=== PATIENT | female | born 1935 | race African-American/Black ===

== ENCOUNTER 2017-11-02 13:57 | Outpatient (CLI) | payer MEDICARE, OTHER | END 2017-11-02 13:58 | disposition home or self-care (01) | LOC: BICCT 13:57 | PROVIDERS: ATTEND Internal Medicine Geriatric Medicine | DX: R29.898 Other symptoms and signs involving the musculoskeletal system (principal) | CPT/HCPCS: 70450 ==

== ENCOUNTER 2018-03-09 18:12 | Inpatient (IN) | payer MEDICARE, OTHER ==
[2018-03-09 19:10] LABS: #Lymphocytes 0.9 thou/uL (1.20-3.40); #Monocytes 0.7 thou/uL (0.11-0.59); #Neutrophils 7.5 thou/uL (1.40-6.50); %Basophils 0.2 % (0.0-1.0); %Eosinophils 0.1 % (0.0-10.0); %Lymphocytes 9.6 % (21.0-51.0); %Monocytes 7.6 % (0.0-10.0); %Neutrophils 82.5 % (42.0-75.0); Hemoglobin 13.5 g/dL (12.0-16.0); Mean Corpuscular HGB CONC 33.7 g/dL (32.0-36.0); Mean Corpuscular Volume 86.1 fL (78.0-98.0); Mean Platelet Volume 7.4 fL (7.4-10.4); Platelet Count 340 thou/uL (130-400); RBC Distribution Width 14.3 % (11.5-14.5); Red Blood Cell (RBC) Count 4.67 mill/uL (4.20-5.40); White Blood Cell (WBC) Count 9.1 thou/uL (4.8-10.8)
[2018-03-09 19:30] LABS: ALT (SGPT) 17 U/L (8-55); AST (SGOT) 53 U/L (5-34); Albumin 4.4 g/dL (3.4-4.8); Alkaline Phosphatase 50 U/L (40-150); Anion Gap 18 mmol/L (10-20); BUN (Urea Nitrogen) 15 mg/dL (9.8-20.1); Bilirubin, Total 0.7 mg/dL (0.2-1.2); Calc. Creatinine Clearance 0 mL/min (70-130); Carbon Dioxide 23 mmol/L (23-31); Chloride 105 mmol/L (98-107); Estimated GFR-MDRD 84; Globulin 3.6 g/dL (2.4-3.5); Glucose 94 mg/dL (83-110); Sodium 142 mmol/L (136-145)
[2018-03-09 20:32] LABS: Bilirubin Negative (Negative); Blood, Urine Moderate (Negative); Clarity CLEAR (Clear); Glucose, Urine (Dipstick) Negative (Negative); Leukocyte Moderate (Negative); Nitrite Negative (Negative); Protein, Urine (Dipstick) 100 mg/dL (Neg-Trace); Specific Gravity, Urine 1.009 (1.002-1.036); Urobilinogen 0.2 mg/dL (0.2-1.0)
[2018-03-09 20:34] LABS: Bacteria/HPF None Seen HPF (None Seen); Hyaline Casts/LPF 0-3 HYALINE CAST LPF (0-3 Hyaline); Pathc Cast-AUWi Flag 0.43 (0-2.49)
[2018-03-09] MEDS ORDERED: cefTRIAXone\\ROCEPHIN 1 GM VIAL ONE (20:45)
[2018-03-09] MEDS ORDERED: Sodium Chloride 0.9% 100 ML ONE (20:45)
--- NOTE | 2018-03-09 20:57 | RAD ---
FRONTAL VIEW CHEST: 03/09/18 COMPARISON: 10/28/09 INDICATION: Altered mental status. FINDINGS: There is elevation of the lateral right hemidiaphragm. Similar appearing. The lungs are clear. The ca rdiac silhouette is stable. There is vascular calcifications. Prominent arthropathy is noted at the imaged bilateral shoulders. IMPRESSION: No focal consolidation. POS: [facility]
--- NOTE | 2018-03-09 21:37 | CT ---
CT BRAIN WITHOUT CONTRAST 03/09/18 HISTORY: Altered mental status. COMPARISON: None FINDINGS: No acute hemorrhage or infarct. No midline shift or mass effect. Ventricular size and extra-axial CS F spaces are normal. Old lacunar infarct on the left. Moderate microvascular ischemic changes. Mild atrophy. The calvarium is intact. The paranasal sinuses and mastoids are clear. IMPRESSION: No acute intracranial abnormality. Chronic findings. POS: HOME
[2018-03-09 21:44] LABS: CKMB 15.5 ng/mL (0-6.6)
[2018-03-10 00:54] LABS: Troponin I 1.026 ng/mL (< 0.028)
[2018-03-10 04:54] VITALS: BMI 21.0
[2018-03-10] MEDS ORDERED: Ondansetron PF 4 MG/2 ML Vial IVP PRN ×2 (06:08→09:53)
[2018-03-10] MEDS ORDERED: Ondansetron ODT 4 MG TAB SL PRN (06:08)
[2018-03-10] MEDS ORDERED: Sodium Chloride 0.9% 1,000 ML IV SCH (06:08)
[2018-03-10] MEDS ORDERED: Aspirin 325 MG TAB PO SCH ×3 (06:15→10:15)
[2018-03-10] MEDS ORDERED: Aspirin 325 MG TAB ONE ×2 (06:17→13:46)
[2018-03-10] MEDS ORDERED: Prevnar 13-Val Conj/PF 0.5 ML SYRINGE IM ONE (08:15)
--- NOTE | 2018-03-10 09:04 | HP ---
PRIMARY CARE PHYSICIAN: Amalia Lockett MD CHIEF COMPLAINT: "My legs were not working." HISTORY OF PRESENT ILLNESS: Ms. Owens is a very pleasant 82-year-old female, who has a history of hypertension and hypothyroidism. She says that she was in her usual state of health until early this morning. She says that she got up to go to the bathroom and then suddenly her legs just "stopped working." She also says she felt irregular and says she felt like it was not going to be a good day. She also says that she noticed a very strange, but the worst taste in her mouth that she just cannot explain. She says that her legs got just weak and would not go at all in both of her legs and she basically kind of slumped to the ground, and she says she could not move or could not get up. She never lost consciousness. She was awake during this time and apparently was not able to bring herself to the ER. Her family found her down and brought her to the hospital, where she was evaluated and found to have an elevated CK as well as an elevated troponin and she is being admitted for further evaluation. The patient denies having any chest pain or pressure at all. She denies feeling short of breath. No nausea. No vomiting. She says that the only thing else besides her legs being weak was that she had this strange horrible taste in her mouth. REVIEW OF SYSTEMS: All systems were reviewed and are negative except for that mentioned in the history of present illness. PAST MEDICAL HISTORY: Significant for gastroesophageal reflux disease, hypertension, and hypothyroidism. PAST SURGICAL HISTORY: She has had a hysterectomy. ALLERGIES: NO KNOWN DRUG ALLERGIES. SOCIAL HISTORY: She is a nonsmoker and nondrinker. She is recently . She was for 65 years and she says her about 4 months ago. She would like to be a full code. Her daughter, Adela, can be a surrogate decision maker. MEDICATIONS: She was not very sure of her medicines and when I read the ones off from the emergency room, she says she did not really recognize them. What was listed in the ER included; 1. Aspirin 325 mg daily. 2. Protonix 40 mg daily. 3. Metoprolol 25 mg twice a day. 4. Lisinopril 40 mg daily. PHYSICAL EXAMINATION: GENERAL: She is alert. She is oriented to person, place, and time. However, she did get the months off just slightly. She thought it was April, not March. She did know who was present in. She is well developed and well nourished. VITAL SIGNS: Blood pressure was 176/104, heart rate 89, respiratory rate of 18, and temperature is 98.1. HEENT: Her pupils are equal, round, and reactive to light. Extraocular muscles are intact. Her sclerae are anicteric. Throat; there is no erythema, no exudates. NECK: No adenopathy. No bruits. LUNGS: Clear to auscultation bilaterally. There is no wheezing, no rales, no rhonchi. CARDIOVASCULAR: She had a normal S1 and S2. I did not appreciate an S3 or S4. No murmurs, clicks, or rubs. ABDOMEN: Soft. It is nontender and nondistended. Positive for bowel sounds. There is no rebound, no guarding. EXTREMITIES: There was no clubbing or cyanosis. No edema. She did have some crepitus in her knee joint, but there is no effusion. NEUROLOGIC: Her cranial nerves II through XII are grossly intact. Her muscle strength was 5/5 in both her upper and lower extremities. SKIN AND INTEGUMENT: Other than a few sun-related skin spots on her lower extremities and some mild vitiligo, otherwise no other skin lesions. LABORATORY RESULTS: Per my reading, her chest x-ray was sinus. The rate was [address]-wave changes. She had a CT scan of the brain, which was negative for any acute intracranial abnormalities. Her lab work; sodium 142, potassium 4.0, chloride is 105, CO2 is 23, BUN of 15, creatinine 0.8, and glucose is 94. CK was 3154. Troponin was 0.9. White blood cell count is 9.1, hemoglobin 13.5, hematocrit is 40.2, platelet count was 340. Urinalysis was essentially negative. She had some moderate blood and moderate leukocyte esterase, but there is no bacteria seen and it was nitrite negative. ASSESSMENT: This is a pleasant 82-year-old female, who was found down at home. The patient says that she never lost consciousness and had what sounds like a severe leg weakness. She also has elevated troponin. Therefore, the leg weakness could be related to an acute cardiac process. She will be admitted to telemetry for non-ST elevation myocardial infarction/acute coronary syndrome as well as mild rhabdomyolysis. 1. For the non-ST elevation myocardial infarction, she will be placed on aspirin and beta-lulu as tolerated. We will get an echocardiogram to assess her ejection fraction, nitrites, and get a lipid panel and consult Cardiology for further recommendations. 2. For the mild rhabdomyolysis, we will place her on gentle hydration with normal saline and repeat a CK in the morning. 3. Hypothyroidism. Her TSH is low. We will check a free T4. We will need to reconcile and get the correct doses of her thyroid medication and we will also get a PT and OT consult. Job ID: [id number]
[2018-03-10] MEDS ORDERED: Enoxaparin Sodium 40 MG/0.4 ML SYRINGE SC SCH ×2 (09:53→10:15)
[2018-03-10] MEDS ORDERED: Labetalol HCl 100 MG/20 ML VIAL SLOW IVP PRN (09:53)
[2018-03-10] MEDS ORDERED: Ondansetron ODT 4 MG TAB PO PRN (09:53)
[2018-03-10] MEDS ORDERED: hydrALAZINE 20 MG/ML VIAL SLOW IVP PRN (09:53)
[2018-03-10] MEDS ORDERED: Metoprolol Tartrate 25 MG TAB PO SCH ×2 (09:53→10:15)
[2018-03-10] MEDS ORDERED: Acetaminophen 325 MG TAB ONE ×2 (10:15)
[2018-03-10] MEDS: Acetaminophen 325 MG TAB PO PRN ×2 (10:19→23:20)
[2018-03-10 12:28] LABS: Critical Call Chem Troponin I RESULT DECREASING; Troponin I 1.036 ng/mL (< 0.028)
[2018-03-10] MEDS ORDERED: Metoprolol Tartrate 25 MG TAB ONE (13:46)
[2018-03-10] MEDS ORDERED: Enoxaparin Sodium 40 MG/0.4 ML SYRINGE ONE (13:46)
[2018-03-10] MEDS: Sodium Chloride 0.9% 1,000 ML IV SCH (14:01)
[2018-03-10] MEDS ORDERED: Nitroglycerin 2% Ointment 1 INCH/1 GM Packet ONE (14:10)
[2018-03-10] MEDS: Nitroglycerin 2% Ointment 1 INCH/1 GM Packet TOP SCH ×2 (14:12→21:57)
[2018-03-10 16:23] LABS: Troponin I 1.313 ng/mL (< 0.028)
[2018-03-10] MEDS: Metoprolol Tartrate 25 MG TAB PO SCH (21:57)
[2018-03-11] MEDS: Sodium Chloride 0.9% 1,000 ML IV SCH ×3 (00:15→20:45)
--- NOTE | 2018-03-11 03:38 | CON ---
DATE OF CONSULTATION: 03/10/2018 TYPE OF CONSULTATION: Cardiology INDICATION FOR CONSULTATION: An 82-year-old female, who was found down at home after she had a fall. She denies any syncopal episodes. She had significant elevation of her CPK and also elevation of her MB fraction and also elevation of troponin I. This is certainly out of proportion with a total CK of 3157. It would not be indicative of a myocardial infarction. The most likely is associated with muscle damage due to rhabdomyolysis. She has had no previous cardiac history that she is aware of. She has a history of hypertension. She is uncertain about her cholesterol level. She denies diabetes. She has a history of smoking in the past and says she has had many, many years ago. She has no family history of early heart disease. She denies any chest pain or previous shortness of breath. She lives alone. Her recently . She takes care of her house and she denies any other symptoms as far as cardiac in nature. She is on metoprolol and lisinopril and aspirin. She could not give me the name of her primary care physician and she is obviously confused. PAST MEDICAL HISTORY: Significant for breast cancer and hysterectomy. She has hypothyroidism and hypertension. SOCIAL HISTORY: She is a . She has one child, age 65, who has no heart disease. She has no tobacco abuse or alcohol use. She is a and is retired. FAMILY HISTORY: Noncontributory. ALLERGIES: NONE. MEDICATIONS: Prior to admission include: 1. Metoprolol 25 mg a day. 2. Lisinopril 40 mg daily. 3. Aspirin. 4. Levothyroxine. REVIEW OF SYSTEMS: She wears glasses. Has false teeth. She has complained of weakness. Otherwise, 12-point review of systems are unremarkable. PHYSICAL EXAMINATION: GENERAL: Reveals an elderly female, somewhat confused. VITAL SIGNS: Blood pressure 169/81, heart rate is 69 and regular, has a sinus rhythm, respiratory rate is 16. She has had a temperature of 99. HEENT: Shows head to be normocephalic and atraumatic. Carotid pulses are present. I did not see any bruits. CHEST: Clear to auscultation. There are no rales, rhonchi, or wheezing. CARDIOVASCULAR: Reveals regular rate and rhythm. She has normal S1 and S2. I cannot hear any significant S3 or S4. There were no significant murmurs, heaves, thrills, bruits, or rubs noted. I did not hear any significant abnormalities. There have been no heaves. ABDOMEN: Soft and nontender. Positive bowel sounds are present. Femoral pulses are present, somewhat decreased. Difficult to palpate popliteal pulses or pedal pulses. She does not have any edema. NEUROLOGICAL: The patient obviously has some degree of dementia . DIAGNOSTIC DATA: Her EKG shows normal sinus rhythm with occasional PVCs. No acute ST-segment elevations or indication of ischemia that would indicate myocardial infarction. She does have some minimal nonspecific changes, but no ST-segment abnormalities. She does have evidence of diastolic dysfunction and had some septal hypertrophy. Otherwise, her ejection fraction by echocardiogram was 55% to 60% without any evidence of wall motion abnormalities. LABORATORY DATA: Showed troponin I of 0.98 on admission and then increased from 1.0 to 1.16 and then is up to 1.3 with MB of 15.5 and CK of 3154. Her other laboratory data shows hemoglobin of 13.5, WBC of 9.1, platelet count of 340,000. Her sodium was 142, creatinine 0.8. Otherwise, there were no significant abnormalities noted. IMPRESSION: 1. Rhabdomyolysis in an elderly female, who was found down on the floor for at least several hours. She denied any episode of syncope. She denies shortness of breath and she denies chest pain. I believe this is due to her rhabdomyolysis. There is no indication that she has any significant underlying coronary artery disease at this time. Due to her dementia, we will continue to follow her. She could undergo stress testing in the future if she is agreeable, but I believe that the abnormal cardiac enzymes are related to rhabdomyolysis since there are no EKG changes otherwise. 2. History of hypertension. This is under reasonable control, but may need further adjustment with blood pressure of 169/81. 3. We will continue her beta blockers. I would hold off on LOUISE inhibitors at this time, but her renal function appears to be stable. We could actually initiate her LOUISE inhibitor since her creatinine remains normal. We will need to follow this given the rhabdomyolysis. 4. History of hypothyroidism. I would continue her thyroid medications. At this time, she has been placed on Lovenox as well as her aspirin. She is actually on deep venous thrombosis prophylaxis dose and I would agree with this. I would not fully anticoagulate this lady based on the findings thus far. Job ID: [id number]
[2018-03-11 05:43] LABS: #Eosinphils 0.1 thou/uL (0.0-0.7); #Lymphocytes 1.5 thou/uL (1.20-3.40); #Monocytes 0.7 thou/uL (0.11-0.59); #Neutrophils 3.1 thou/uL (1.40-6.50); %Basophils 0.8 % (0.0-1.0); %Lymphocytes 27.7 % (21.0-51.0); %Monocytes 12.4 % (0.0-10.0); %Neutrophils 58.2 % (42.0-75.0); Hemoglobin 11.5 g/dL (12.0-16.0); Mean Corpuscular HGB CONC 32.9 g/dL (32.0-36.0); Mean Corpuscular Hemoglobin 28.4 pg (27.0-31.0); Mean Corpuscular Volume 86.3 fL (78.0-98.0); Mean Platelet Volume 8.2 fL (7.4-10.4); Platelet Count 294 thou/uL (130-400); RBC Distribution Width 14.2 % (11.5-14.5); Red Blood Cell (RBC) Count 4.04 mill/uL (4.20-5.40); White Blood Cell (WBC) Count 5.4 thou/uL (4.8-10.8)
[2018-03-11 05:57] LABS: Anion Gap 13 mmol/L (10-20); BUN (Urea Nitrogen) 14 mg/dL (9.8-20.1); CK (CPK) 1807 U/L (29-168); Calc. Creatinine Clearance 46 mL/min (70-130); Calcium 8.7 mg/dL (7.8-10.44); Carbon Dioxide 21 mmol/L (23-31); Cardiac Risk 3.3 (Less than 4.5); Chloride 110 mmol/L (98-107); Cholesterol 200 mg/dl (< 200 Desired); Estimated GFR-MDRD 84; Glucose 65 mg/dL (83-110); HDL Cholesterol 60 mg/dL (>60 Neg Risk); LDL Cholesterol, Calculated 114 mg/dL; Potassium 3.8 mmol/L (3.5-5.1); Sodium 140 mmol/L (136-145); Triglycerides 130 mg/dL (Less than 150)
[2018-03-11] MEDS: Nitroglycerin 2% Ointment 1 INCH/1 GM Packet TOP SCH ×3 (06:17→20:45)
[2018-03-11] MEDS: Enoxaparin Sodium 40 MG/0.4 ML SYRINGE SC SCH (10:43)
[2018-03-11] MEDS: Metoprolol Tartrate 25 MG TAB PO SCH ×2 (10:43→20:45)
[2018-03-11] MEDS: Aspirin 325 MG TAB PO SCH (10:43)
--- NOTE | 2018-03-11 15:37 | PDOC.PN ---
- Subjective Encounter Start Date: 03/11/18 Encounter Start Time: 09:45 Ms. Cox was seen today in follow-up of generalized weakness. She says she feels better today. She denies chest pain. - Objective Resuscitation Status - Order Detail: 03/10/18 08:21 Resuscitation Status Routine Resuscitation Status: FULL: Full Resuscitation MAR Reviewed: Yes Vital Signs & Weight: Vital Signs (12 hours) Temp Pulse Resp BP BP Pulse Ox 03/11/18 08:15 98 F 75 16 182/89 H 99 03/11/18 04:00 98 F 62 16 165/84 H 97 Weight Weight 115 lb 1.301 oz I&O: 03/10/18 03/11/18 03/12/18 06:59 06:59 06:59 Intake Total 950 772 Output Total 900 Balance 50 772 Result Diagrams: 03/11/18 05:12 03/11/18 05:12 Phys Exam - Physical Examination HEENT: PERRLA Respiratory: no wheezing, no rales, no rhonchi, clear to auscultation bilateral Cardiovascular: RRR, no significant murmur, no rub Gastrointestinal: soft, non-tender, no distention, positive bowel sounds Musculoskeletal: no edema, pulses present Dx/Plan (1) NSTEMI (non-ST elevated myocardial infarction) Code(s): I21.4 - NON-ST ELEVATION (NSTEMI) MYOCARDIAL INFARCTION Status: Acute (2) Rhabdomyolysis Code(s): M62.82 - RHABDOMYOLYSIS Status: Acute (3) Hypertension Code(s): I10 - ESSENTIAL (PRIMARY) HYPERTENSION Status: Chronic (4) Hypothyroidism Code(s): E03.9 - HYPOTHYROIDISM, UNSPECIFIED Status: Chronic - Plan * NSTEMI- continue medical management- aspirin, and metoprolol, and will add Lipitor * Echo results noted- evidence for diastolic dysfunction * Rhabdomyolysis- slowly improving * HTN- blood pressure - elevated- will add Amlodipine .
[2018-03-11] MEDS ORDERED: Amlodipine 5 MG TAB PO SCH (18:00)
--- NOTE | 2018-03-11 18:04 | PDOC.CTH ---
Cardiology Progress Note - Subjective The pt seen and examined. No overnight events. No cardiac complaints. - Objective Vital Signs Temp Pulse Resp BP Pulse Ox 03/11/18 16:52 65 03/11/18 15:40 98 F 65 20 150/71 H 98 03/11/18 08:15 98 F 75 16 182/89 H 99 Weight 115 lb 1.301 oz 03/10/18 03/11/18 03/12/18 06:59 06:59 06:59 Intake Total 950 772 Output Total 900 Balance 50 772 - Physical Examination General/Neuro: other: (alarted) Lungs: CTA Heart: RRR Abdomen: soft Extremities: other: (No edema) - Telemetry Telemetry Rhythm: SR 60s - Labs Result Diagrams: 03/11/18 05:12 03/11/18 05:12 Troponin/CKMB CK-MB (CK-2) 15.5 ng/mL (0-6.6) H* 03/09/18 20:42 Troponin I 1.313 ng/mL (< 0.028) H* 03/10/18 15:45 - Assessment/Plan 1. Rhabdomyolysis - On NS 100ml/h 2. HTN - Norvasc 5mg qd will be started from tonight. 3. Hypothyroidism - managed by PCP NAY layne. * Echo on 03/10/2018 showed EF 55-60%, trace MR and TR, and mild OR. Pt. seen and eval. by me. I agree with the A/P by the SHIP ERECTOR. The cardiac status is stable.The cardiac enzymes are elevated due to rhabdo. EF normal. No chest pain. Could consider stress test in the future if she is agreeable. This could be done as an outpt. Chest clear. RRR. Review of Systems - Review of Systems Constitutional: reports: no symptoms reported EENTM: reports: no symptoms reported Respiratory: reports: no symptoms reported Cardiac (ROS): reports: no symptoms reported ABD/GI: reports: no symptoms reported : reports: no symptoms reported
[2018-03-11] MEDS: Atorvastatin Calcium 20 MG TAB PO SCH (20:45)
[2018-03-12] MEDS: Levothyroxine Sodium 75 MCG TAB PO SCH (06:09)
[2018-03-12] MEDS: Nitroglycerin 2% Ointment 1 INCH/1 GM Packet TOP SCH (06:09)
[2018-03-12] MEDS: Sodium Chloride 0.9% 1,000 ML IV SCH (06:09)
[2018-03-12] MEDS: Acetaminophen 325 MG TAB PO PRN (06:10)
[2018-03-12] MEDS: Aspirin 325 MG TAB PO SCH (10:19)
[2018-03-12] MEDS: Metoprolol Tartrate 50 MG TAB PO SCH ×2 (10:20→21:15)
[2018-03-12] MEDS: Enoxaparin Sodium 40 MG/0.4 ML SYRINGE SC SCH (10:20)
[2018-03-12] MEDS: Amlodipine 10 MG TAB PO SCH (10:20)
--- NOTE | 2018-03-12 12:23 | PQF ---
CLINICAL DOCUMENTATION IMPROVEMENT CLARIFICATION FORM: ICD-10 Updated PLEASE DO AN ADDENDUM TO THE PROGRESS NOTE WITH ANY DOCUMENTATION UPDATES OR ADDITIONS AND CARRY THROUGH TO DC SUMMARY. THANK YOU. DATE: 03/12/18 ATTN: DR. DOWELL Please exercise your independent, professional judgment in responding to the clarification form. Clinical indicators are provided on the bottom of this form for your review Please check appropriate box(s): AMI TYPE: [ ] NSTEMI [ ] [place] Type II [ x ] DEMAND ISCHEMIA [ ] Other diagnosis [ ] Unable to determine In addition, please specify: Present on Admission (POA): [ x ] Yes [ ] No [ ] Unable to determine CLINICAL INDICATORS - SIGNS / SYMPTOMS / LABS ER NOTE: "RHABDO, NSTEMI, UTI" H&P: "NSTEMI" CARDIOLOGY NOTE 03/10: "ABNORMAL CARDIAC ENZYMES ARE RELATED TO THE RHABDOMYOLYSIS SINCE THERE ARE NO EKG CHANGES OTHERWISE." CARDIOLOGY NOTE 03/11: "THE CARDIAC ENZYMES ARE ELEVATED DUE TO THE RHABDO." TROPONINS 1.026 / 1.160 / 1.036 / 1.313 RISKS: RHABDOMYOLYSIS TREATMENT: CARDIOLOGY CONSULT CARDIAC MONITORING ASPIRIN (03/11-PRESENT) LOVENOX (03/11-PRESENT) LOPRESSOR (STARTED 03/12) SERIAL ENZYMES (This form is maintained as a part of the permanent medical record) 2014 [employer]. All Rights Reserved [email or web address] Office: [phone] [facility]
--- NOTE | 2018-03-12 13:27 | PDOC.PN ---
- Subjective Encounter Start Date: 03/12/18 Encounter Start Time: 10:00 Subjective: no chest pain or sob -: daughter at bedside -: is amb in room per patient - Objective Resuscitation Status - Order Detail: 03/10/18 08:21 Resuscitation Status Routine Resuscitation Status: FULL: Full Resuscitation MAR Reviewed: Yes Vital Signs & Weight: Vital Signs (12 hours) Temp Pulse Resp BP BP Pulse Ox 03/12/18 10:20 69 03/12/18 08:40 97.3 F L 69 16 182/81 H 98 03/12/18 04:00 98.3 F 65 18 178/87 H 100 Weight Weight 116 lb 2 oz I&O: 03/11/18 03/12/18 03/13/18 06:59 06:59 06:59 Intake Total 772 1300 Output Total 1050 Balance 772 250 Result Diagrams: 03/11/18 05:12 03/11/18 05:12 Phys Exam - Physical Examination HEENT: PERRLA, moist MMs Neck: no JVD, supple Respiratory: no wheezing, no rales Cardiovascular: RRR, no significant murmur Gastrointestinal: soft, non-tender, positive bowel sounds Musculoskeletal: no edema, pulses present Neurological: non-focal, moves all 4 limbs Psychiatric: normal affect, A&O x 3 Dx/Plan (1) Rhabdomyolysis Code(s): M62.82 - RHABDOMYOLYSIS Status: Acute Qualifiers: Encounter type: subsequent encounter (2) Demand ischemia of myocardium Code(s): I24.8 - OTHER FORMS OF ACUTE ISCHEMIC HEART DISEASE Status: Acute (3) Dyslipidemia Code(s): E78.5 - HYPERLIPIDEMIA, UNSPECIFIED Status: Acute (4) Hypertension Code(s): I10 - ESSENTIAL (PRIMARY) HYPERTENSION Status: Chronic Comment: uncontrolled (5) Hypothyroidism Code(s): E03.9 - HYPOTHYROIDISM, UNSPECIFIED Status: Chronic Qualifiers: Hypothyroidism type: unspecified Qualified Code(s): E03.9 - Hypothyroidism , unspecified - Plan increase norvasc to 10mg daily -: increase lopressor to 50mg bid -: continue asp, lipitor. D/w patient and daughter at bedside -: echo shows ef of 55% with diastolic dysfunction, outpt stress test -: hemostable, dc plan in am to home. Thomason cultures are -ve, influenza -ve * . Review of Systems - Medications/Allergies Allergies/Adverse Reactions: Allergies Allergy/AdvReac Type Severity Reaction Status Date / Time No Known Allergies Allergy Unverified 03/10/18 02:04 Medications: Current Medications Acetaminophen (Tylenol) 650 mg PO Q4H PRN PRN Reason: Headache/Fever/Mild Pain (1-3) Last Admin: 03/12/18 06:10 Dose: 650 mg Amlodipine Besylate (Norvasc) 5 mg PO 1800 [facility] Last Admin: 03/11/18 16:52 Dose: 5 mg Amlodipine Besylate (Norvasc) 10 mg PO DAILY [facility] Last Admin: 03/12/18 10:20 Dose: 10 mg Aspirin (Aspirin) 325 mg PO DAILY [facility] Last Admin: 03/12/18 10:19 Dose: 325 mg Atorvastatin Calcium (Lipitor) 20 mg PO HS [facility] Last Admin: 03/11/18 20:45 Dose: 20 mg Enoxaparin Sodium (Lovenox) 40 mg SC 0900 [facility] Last Admin: 03/12/18 10:20 Dose: 40 mg Hydralazine HCl (Apresoline) 10 mg SLOW IVP Q4H PRN PRN Reason: SBP > 180 and HR < 70 Labetalol HCl (Normodyne) 20 mg SLOW IVP Q4H PRN PRN Reason: SBP > 180 and HR >/= 70 Levothyroxine Sodium (Synthroid) 75 mcg PO 0600 [facility] Last Admin: 03/12/18 06:09 Dose: 75 mcg Metoprolol Tartrate (Lopressor) 50 mg PO BID [facility] Last Admin: 03/12/18 10:20 Dose: 50 mg Ondansetron HCl (Zofran Odt) 4 mg PO Q6H PRN PRN Reason: Nausea/Vomiting Ondansetron HCl (Zofran) 4 mg IVP Q6H PRN PRN Reason: Nausea/Vomiting Pantoprazole Sodium (Protonix) 40 mg PO DAILY [facility] Last Admin: 03/12/18 10:20 Dose: 40 mg Sodium Chloride (Flush - Normal Saline) 10 ml IVF Q12HR [facility] Last Admin: 03/12/18 09:05 Dose: Not Given Sodium Chloride (Flush - Normal Saline) 10 ml IVF PRN PRN PRN Reason: Saline Flush
[2018-03-12] MEDS: Atorvastatin Calcium 20 MG TAB PO SCH (21:10)
[2018-03-13] MEDS: Levothyroxine Sodium 75 MCG TAB PO SCH ×2 (05:56→07:47)
[2018-03-13 08:52] LABS: #Basophils 0.1 thou/uL (0.0-0.2); #Monocytes 0.6 thou/uL (0.11-0.59); #Neutrophils 3.7 thou/uL (1.40-6.50); %Eosinophils 0.4 % (0.0-10.0); %Lymphocytes 19.1 % (21.0-51.0); %Monocytes 11.3 % (0.0-10.0); %Neutrophils 68.2 % (42.0-75.0); Hemoglobin 12.4 g/dL (12.0-16.0); Mean Corpuscular HGB CONC 32.2 g/dL (32.0-36.0); Mean Corpuscular Hemoglobin 27.6 pg (27.0-31.0); Mean Corpuscular Volume 85.6 fL (78.0-98.0); Mean Platelet Volume 8.6 fL (7.4-10.4); Platelet Count 328 thou/uL (130-400); RBC Distribution Width 14.2 % (11.5-14.5); Red Blood Cell (RBC) Count 4.49 mill/uL (4.20-5.40); White Blood Cell (WBC) Count 5.5 thou/uL (4.8-10.8)
[2018-03-13] MEDS: Amlodipine 10 MG TAB PO SCH (08:59)
[2018-03-13] MEDS: Metoprolol Tartrate 50 MG TAB PO SCH (08:59)
[2018-03-13] MEDS: Aspirin 325 MG TAB PO SCH (08:59)
[2018-03-13] MEDS: Enoxaparin Sodium 40 MG/0.4 ML SYRINGE SC SCH (08:59)
[2018-03-13 09:06] LABS: Anion Gap 17 mmol/L (10-20); BUN (Urea Nitrogen) 9 mg/dL (9.8-20.1); Calc. Creatinine Clearance 50 mL/min (70-130); Calcium 9.6 mg/dL (7.8-10.44); Carbon Dioxide 23 mmol/L (23-31); Chloride 105 mmol/L (98-107); Estimated GFR-MDRD 87; Glucose 91 mg/dL (83-110); Potassium 3.9 mmol/L (3.5-5.1); Sodium 141 mmol/L (136-145)
--- NOTE | 2018-03-13 10:15 | PDOC.PN ---
- Subjective Encounter Start Date: 03/13/18 Encounter Start Time: 08:45 Subjective: no chest pain or palp -: feels better, is amb in room - Objective Resuscitation Status - Order Detail: 03/10/18 08:21 Resuscitation Status Routine Resuscitation Status: FULL: Full Resuscitation MAR Reviewed: Yes Vital Signs & Weight: Vital Signs (12 hours) Temp Pulse Resp BP BP BP BP 03/13/18 07:42 97.9 F 88 14 132/75 03/13/18 05:11 92 16 146/71 H 03/13/18 04:08 98.2 F 71 16 168/78 H 03/13/18 03:56 63 187/86 H 03/13/18 00:00 97.5 F L 57 L 20 179/87 H Pulse Ox 03/13/18 07:42 99 03/13/18 05:11 03/13/18 04:08 03/13/18 03:56 03/13/18 00:00 98 Weight Weight 119 lb I&O: 03/12/18 03/13/18 03/14/18 06:59 06:59 06:59 Intake Total 1300 240 Output Total 1050 300 Balance 250 -60 Result Diagrams: 03/13/18 07:56 03/13/18 07:56 Phys Exam - Physical Examination HEENT: PERRLA, moist MMs Neck: no JVD, supple Respiratory: no wheezing, no rales Cardiovascular: RRR, no significant murmur Gastrointestinal: soft, non-tender, positive bowel sounds Musculoskeletal: no edema, pulses present Neurological: non-focal, moves all 4 limbs Psychiatric: normal affect, A&O x 3 Dx/Plan (1) Rhabdomyolysis Code(s): M62.82 - RHABDOMYOLYSIS Status: Acute Qualifiers: Encounter type: subsequent encounter (2) Demand ischemia of myocardium Code(s): I24.8 - OTHER FORMS OF ACUTE ISCHEMIC HEART DISEASE Status: Acute (3) Dyslipidemia Code(s): E78.5 - HYPERLIPIDEMIA, UNSPECIFIED Status: Acute (4) Hypertension Code(s): I10 - ESSENTIAL (PRIMARY) HYPERTENSION Status: Chronic Comment: uncontrolled (5) Hypothyroidism Code(s): E03.9 - HYPOTHYROIDISM, UNSPECIFIED Status: Chronic Qualifiers: Hypothyroidism type: unspecified Qualified Code(s): E03.9 - Hypothyroidism , unspecified - Plan hemostable -: has been approved for rehab, will dc -: will need outpt stress test -: d/w patient and daughter in law at bedside * .
[2018-03-13 11:43] VITALS: BP 143/65; TEMP 97.4
--- NOTE | 2018-03-13 12:53 | EKG ---
Test Reason : STAT Blood Pressure : / mmHG Vent. Rate : 059 BPM Atrial Rate : 059 BPM P-R Int : 158 ms QRS Dur : 072 ms QT Int : 446 ms P-R-T Axes : 063 028 043 degrees QTc Int : 441 ms Sinus bradycardia with marked sinus arrhythmia Otherwise normal ECG When compared with ECG of 09-MAR-2018 19:27, (Unconfirmed) Premature atrial complexes are no longer Present Vent. rate has decreased BY [address] Di MONDRAGON (3) on 03/13/2018 12:53:04 PM Referred By: MAGALYS Confirmed By:DR. Di MONDRAGON
--- NOTE | 2018-03-13 14:52 | DIS ---
DATE OF ADMISSION: 03/09/2018 DATE OF DISCHARGE: 03/13/2018 DISCHARGE DISPOSITION: Inpatient rehab. PRIMARY DISCHARGE DIAGNOSES: History of fall with rhabdomyolysis, resolving; demand ischemia secondary to above, resolving; hypertension, uncontrolled, stable at present; dyslipidemia; hypothyroidism. PROCEDURES DONE DURING HOSPITALIZATION: Echo with 2D Doppler done, which showed EF of 55% to 60%, there were septal hypertrophy and diastolic dysfunction. CT brain done showed no acute intracranial abnormality. Chest x-ray done showed no focal consolidation. Blood cultures x2, no growth. Influenza A and B antigens were negative. Urine cultures were contaminated. White count of 9 on admission, discharge number of 5. H and H 12 and 38, platelet count 328, MCV 85. Troponin I was indeterminate, peaking up to 1.31. CK levels on admission were 3154, CK-MB 15.5. BNP 247. Total cholesterol 200, triglycerides 130, LDL 114, HDL 60. Discharge BUN and creatinine were 9 and 0.7. INPATIENT CONSULT: Dr. Noel for Cardiology. DISCHARGE MEDICATIONS: 1. Aspirin 325 mg p.o. daily. 2. Norvasc 10 mg p.o. daily. 3. Lipitor 20 mg p.o. at bedtime. 4. Lopressor 50 mg twice daily. 5. Levothyroxine 75 mcg p.o. daily. BRIEF COURSE DURING HOSPITALIZATION: The patient initially got admitted on 6th after she was found down. She had rhabdomyolysis and indeterminate cardiac enzymes as well. The patient was admitted to telemetry. She has had trending of her troponin done which peaked up to 1.3. She was gently hydrated. The patient has had echo done, which showed normal ejection fraction with no wall motion abnormalities. She had signs of LVH. She was also evaluated by Dr. Noel for Cardiology. The patient will have outpatient stress test, which will be scheduled via Dr. Noel' office. She has deconditioning and currently is ambulating in the room with assistance. In view of this, she is being discharged to inpatient rehab for further recuperation prior to going home. A total of 35 minutes was spent on discharge plan. Please see a [id number] documentation for the day of discharge on [employer]. Job ID: [id number]
== END 2018-03-13 13:10 | DRG 558 ==
LOC: ERS 18:12 → ERHOLD 22:01 → 2NO 03-10 14:58
PROVIDERS: ADMIT Internal Medicine; ATTEND Internal Medicine
DX: M62.82 Rhabdomyolysis (principal); I24.8 Other forms of acute ischemic heart disease; F03.90 Unspecified dementia, unspecified severity, without behavioral disturbance, psychotic disturbance, mood disturbance, and anxiety; E03.9 Hypothyroidism, unspecified; Z79.82 Long term (current) use of aspirin; Z79.899 Other long term (current) drug therapy
CPT/HCPCS: 36415; 70450; 71045; 80048; 80053; 80061; 81003; 81015; 82140; 82550; 82553; 83605; 83690; 83880; 84439; 84443; 84484; 85025; 87040; 87086; 87804; 93005; 93010; 93306; 94760; 96361; 96365; J0360; J0696; J1650; J7050